=== PATIENT | male | born 1990 | race African-American/Black ===

== ENCOUNTER 2023-09-08 00:50 | Emergency (ER) | payer MEDICARE, SELFPAY ==
[2023-09-08 01:03] VITALS: BP 146/89; PULSE 127; RESP 16; TEMP 38.4; O2SAT 98
[2023-09-08 01:14] LABS: Eosinophils Percent Auto 0.8 % (0-4.4); Hematocrit 43.8 % (42.0-52.0); Hemoglobin 13.4 g/dL (14.0-18.0); Immature Granulocyte Absolute 0.02 K/mm3 (0.00-0.031); Immature Granulocyte Percent A 0.4 % (0-0.5); Lymphocytes Absolute Auto 0.65 K/mm3 (0.9-3.2); Lymphocytes Percent Auto 12.4 % (18.3-44.2); Mean Corpuscular HGB Conc 30.6 g/dl (32-36); Mean Corpuscular Volume 84.9 fl (80-100); Mean Platelet Volume 10.5 fl (7.4-10.4); Monocytes Absolute Auto 0.5 K/mm3 (0.1-0.6); Monocytes Percent Auto 8.6 % (2.6-8.5); Neutrophils Absolute Auto 4.1 K/mm3 (1.3-6.7); Neutrophils Percent Auto 77.8 % (45.5-73.1); Platelet Count Result 225 k/mm3 (150-375); Red Blood Count 5.16 M/mm3 (4.6-6.20); Red Cell Distribution Width 13.6 % (11.5-14.5); White Blood Count 5.3 K/mm3 (4.5-10.0)
[2023-09-08 01:36] LABS: Alanine Aminotransferase 38 U/L (6-50); Albumin Level 4.1 g/dL (3.5-5.1); Alkaline Phosphatase 114 U/L (38-126); Anion Gap 10 mmol/L (8-16); Aspartate Amino Transferase 38 U/L (17-59); Bilirubin,Total 0.5 mg/dL (0.2-1.3); Blood Urea Nitrogen 11 mg/dL (9-20); Calcium 9.2 mg/dL (8.4-10.2); Carbon Dioxide 27 mmol/L (22-30); Chloride 101 mmol/L (98-107); Estimated CRCL calculation 172 ml/min; Estimated Glomerular Filt Rate > 60; Glucose 121 mg/dL (65-110); Lipase 34 U/L (23-300); Potassium 3.6 mmol/L (3.4-5.0); Sodium 138 mmol/L (137-145)
[2023-09-08 01:51] LABS: Influenza A QL RT-PCR Positive (Negative); Influenza B QL RT-PCR Negative (Negative); RSV RNA, RT-PCR Negative (Negative); SARS-CoV-2 RNA PCR Negative (Negative)
[2023-09-08 03:45] VITALS: BP 154/92; PULSE 113; RESP 22; TEMP 38.2; O2SAT 97
[2023-09-08] MEDS: ACETAMINOPHEN 500 MG TABLET 1000 MG PO (04:20)
--- NOTE | 2023-09-08 04:40 | ED.NAVMDI ---
HPI - Nausea/Vomiting/Diarrhea General Chief complaint: Nausea/Vomiting/Diarrhea Stated complaint: nausea/vomiting/fever Time Seen by Provider: 09/08/23 03:51 History of Present Illness HPI Narrative: Patient is a 32-year-old male presenting with fever and vomiting. States that earlier tonight he developed a fever and then had several episodes of emesis so they came in for evaluation. States that he currently feels better. He is no longer nauseated. He has not vomited for several hours. He denies any pain. No shortness of breath. States that he did have some wheezing earlier tonight but no longer does. No leg swelling. No further complaints. Related Data Allergies Allergy/AdvReac Type Severity Reaction Status Date / Time No Known Allergies Allergy Verified 09/08/23 04:19 Review of Systems Review of Systems: All systems reviewed & are unremarkable except as noted in HPI and below Exam Narrative: GENERAL: Nontoxic, no acute distress, pleasant cooperative HEAD: Normocephalic, atraumatic. EYES: PERRLA and EOMI. ENT: Mucous membranes moist. NECK: Supple. CHEST: Clear to auscultation. No respiratory distress. HEART: tachycardic, regular rhythm ABDOMEN: Soft, nontender, nondistended EXTREMITIES: Normal range of motion. No edema. SKIN: Warm, dry, no rash. NEURO: No focal deficits. Alert and oriented x3. PSYCH: Normal mood and affect. Course Vital Signs Vital signs: Vital Signs Temperature 101.1 F H 09/08/23 01:03 Pulse Rate 127 H 09/08/23 01:03 Respiratory Rate 16 09/08/23 01:03 Blood Pressure 146/89 H 09/08/23 01:03 Pulse Oximetry 98 09/08/23 01:03 Oxygen Delivery Room Air 09/08/23 01:03 Temperature 100.7 F H 09/08/23 03:45 Pulse Rate 113 H 09/08/23 03:45 Respiratory Rate 22 H 09/08/23 03:45 Blood Pressure 154/92 H 09/08/23 03:45 Pulse Oximetry 97 09/08/23 03:45 Oxygen Delivery Room Air 09/08/23 01:03 MDM - Nausea/Vomiting/Diarrhea MDM Narrative Medical decision making narrative: 32-year-old male presenting with vomiting and fever. Patient is febrile and tachycardic on arrival. Exam is unremarkable. My examination, the patient states that he feels improved. He is tolerating p.o. intake. Blood work is unremarkable. He is positive for influenza A. Feel he is safe for outpatient management. States that his inhaler is , will provide prescription for a new one. Patient also needs a PCP, will provide this number. Appropriate return precautions given. Discharged in stable condition. Differential Diagnosis Differential diagnosis: Likely gastroenteritis, dehydration and other ( Viral infection, influenza) Medical Records Attestation: I reviewed the patient's medical records. Lab Data Attestation: I reviewed the patient's lab results. 09/08/23 01:05 09/08/23 01:06 Labs: Lab Results 09/08/23 09/08/23 Range/Units 01:05 01:06 WBC 5.3 (4.5-10.0) K/mm3 RBC 5.16 (4.6-6.20) M/mm3 Hgb 13.4 L (14.0-18.0) g/dL Hct 43.8 (42.0-52.0) % MCV 84.9 (80-100) fl MCH 26.0 (26-34) pg MCHC 30.6 L (32-36) g/dl RDW 13.6 (11.5-14.5) % Plt Count 225 (150-375) k/mm3 MPV 10.5 H (7.4-10.4) fl Immature Gran % (Auto) 0.4 (0-0.5) % Neut % (Auto) 77.8 H (45.5-73.1) % Lymph % (Auto) 12.4 L (18.3-44.2) % [place] % (Auto) 8.6 H (2.6-8.5) % Eos % (Auto) 0.8 (0-4.4) % Baso % (Auto) 0.0 L (0.2-1.2) % Lymph # (Auto) 0.65 L (0.9-3.2) K/mm3 [place] # (Auto) 0.5 (0.1-0.6) K/mm3 Eos # (Auto) 0.0 (0-0.3) K/mm3 Baso # (Auto) 0.0 (0.0-0.1) K/mm3 Abs Immat Gran (auto) 0.02 (0.00-0.031) K/mm3 Absolute Neuts (auto) 4.1 (1.3-6.7) K/mm3 Absolute Nucleated RBC 0.0 (0.0-0.012) K/mm3 Nucleated RBC % 0.0 (0.0-0.2) % Sodium 138 (137-145) mmol/L Potassium 3.6 (3.4-5.0) mmol/L Chloride 101 (98-107) mmol/L Carbon Dioxide 27 (22-30) mmol/L Anion Gap 10 (8-16)
[2023-09-08 05:20] VITALS: BP 159/94; PULSE 85; RESP 18; O2SAT 98
== END 2023-09-08 05:22 | disposition home or self-care (01) ==
PROVIDERS: Emergency Provider Emergency Medicine
DX: J10.2 Influenza due to other identified influenza virus with gastrointestinal manifestations (principal); Z20.822 Contact with and (suspected) exposure to COVID-19
CPT/HCPCS: 36415; 80053; 83690; 85025; 87637; 99283; A9270